=== PATIENT | male | born 1960 | race Caucasian/White ===

== ENCOUNTER 2018-05-18 18:45 | Inpatient (IN) | payer MEDICARE ==
[~2018-05-18] VITALS: Ht 170.2 cm; Wt 76.2 kg
--- NOTE | 2018-05-18 19:00 | NUR ---
WINSOME RN NOTES RECEIVED PATIENT ON ISRA[place], PT IS A/A/OX4. PATIENT IS PLACED ON WILL CALL ORDER CLERK WITH ST HR 108. PATIENT IS ON RA WITH SPO2 OF 98%, CO COMPLAINT OF CHEST PAIN, NO SOB AT THIS TIME, PATIENT IS BREATHING EVENLY, NON LABORED. IV LINE RIGHT AC IS PATIENT AND INTACT. SKIN ASSESSMENT IS DONE . ALL SAFETY MEASURES ARE IMPLEMENTED, BED IN LOWEST, LOCKED POSITION, CALL LIGHT IN REACH. PATIENT IS ORIENTED TO THE UNIT AND ASKED TO USE THE CALL LIGHT FOR ASSISTANCE AND HELP. WILL CONTINUE TO MONITOR PATIENT CLOSELY.
[2018-05-18 20:00] VITALS: BP 122/75
[2018-05-18] MEDS ORDERED: ALBUTEROL FS 2.5 MG/3 ML VIAL.NEB NEB PRN (23:00)
[2018-05-18] MEDS ORDERED: IPRATROPIUM NEB FS 0.5 MG/2.5 ML AMPUL.NEB NEB PRN (23:00)
[2018-05-18] MEDS ORDERED: AMIODARONE 900 MG in IV D5W 482 ML IV PRN (23:30)
[2018-05-18] MEDS ORDERED: AMIODARONE 150 MG in IV D5W 100 ML IV ONE (23:30)
[2018-05-18 23:40] LABS: BASOPHILS % (AUTO) 0.3 % (0.0-2.0); EOSINOPHILS % (AUTO) 0.3 % (0.0-6.0); HEMATOCRIT 38 % (39-51); HEMOGLOBIN 13.2 g/dL (13.5-17.5); LYMPHOCYTES # (AUTO) 2.2 /CMM (0.8-4.8); MEAN CORPUSCULAR HGB CONC 35 g/dl (31.0-36.0); MEAN CORPUSCULAR VOLUME 91 fL (80-96); MONOCYTES # (AUTO) 1.2 /CMM (0.1-1.30); MONOCYTES % (AUTO) 10.7 % (2.0-12.0); NEUTROPHILS # (AUTO) 7.9 /CMM (1.8-8.9); NEUTROPHILS % (AUTO) 69.7 % (43.0-81.0); PLATELET COUNT (AUTO) 245 /CMM (150-450); RED BLOOD CELL COUNT(AUTO) 4.21 MIL/uL (4.5-6.0); WHITE BLOOD COUNT (AUTO) 11.4 K/uL (4.3-11.0)
[2018-05-18 23:48] LABS: CALCIUM, SERUM 9.1 mg/dL (8.5-10.1); CARBON DIOXIDE 24 mmol/L (21-32); CHLORIDE 102 mmol/L (98-107); GLUCOSE 208 mg/dL (74-106); POTASSIUM 3.6 mmol/L (3.5-5.1); SODIUM SERUM 137 mmol/L (136-145); UREA NITROGEN, BLOOD 11 mg/dL (7-18)
[2018-05-18 23:53] LABS: CREATINE KINASE, TOTAL 74 U/L (39-308)
[2018-05-19] VITALS: BP 110/59
[2018-05-19 00:01] LABS: ALANINE AMINOTRANSFERASE 45 U/L (12-78); ALBUMIN 2.6 g/dL (3.4-5.0); ALKALINE PHOSPHATASE 188 U/L (46-116); ASPARTATE AMINOTRANSFERASE 26 U/L (15-37); B-TYPE NATRIURETIC PEPTIDE 2638 PG/ML (0-125); BILIRUBIN,DIRECT 0.6 mg/dL (0.0-0.2); BILIRUBIN,TOTAL 1.6 mg/dL (0.2-1.0); MAGNESIUM 1.8 mg/dL (1.8-2.4); PHOSPHORUS 2.8 mg/dL (2.5-4.9); TOTAL PROTEIN, SERUM 7.1 g/dL (6.4-8.2)
[2018-05-19] MEDS ORDERED: DEXTROSE 50%-WATER 50 ML DISP.SYRIN IV PRN (00:30)
[2018-05-19] MEDS ORDERED: AMIODARONE 150 MG/3 ML VIAL IV ONE ×4 (00:45→00:59)
[2018-05-19] MEDS ORDERED: CEFTRIAXONE 1 G VIAL ONE (00:58)
[2018-05-19] MEDS: CEFTRIAXONE 1 G in IV D5W 50 ML IV SCH (01:10)
[2018-05-19 04:00] VITALS: BP_SYST 104; BP_SYST 108; BP_DIAS 72; BP_DIAS 87
[2018-05-19 06:50] LABS: BASOPHILS % (AUTO) 0.5 % (0.0-2.0); EOSINOPHILS % (AUTO) 1.3 % (0.0-6.0); HEMATOCRIT 38 % (39-51); HEMOGLOBIN 13.5 g/dL (13.5-17.5); LYMPHOCYTES # (AUTO) 1.5 /CMM (0.8-4.8); LYMPHOCYTES % (AUTO) 18.6 % (20.0-44.0); MEAN CORPUSCULAR HGB CONC 35 g/dl (31.0-36.0); MEAN CORPUSCULAR VOLUME 91 fL (80-96); MONOCYTES % (AUTO) 11.7 % (2.0-12.0); NEUTROPHILS # (AUTO) 5.6 /CMM (1.8-8.9); NEUTROPHILS % (AUTO) 67.9 % (43.0-81.0); PLATELET COUNT (AUTO) 230 /CMM (150-450); WHITE BLOOD COUNT (AUTO) 8.3 K/uL (4.3-11.0)
[2018-05-19 06:57] LABS: THYROID STIMULATING HORMONE 2.261 uIU/mL (0.358-3.74)
[2018-05-19 07:05] LABS: CALCIUM, SERUM 9.3 mg/dL (8.5-10.1); MAGNESIUM 2.1 mg/dL (1.8-2.4); PHOSPHORUS 2.4 mg/dL (2.5-4.9); POTASSIUM 3.7 mmol/L (3.5-5.1)
--- NOTE | 2018-05-19 07:05 | NUR ---
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 PATIENT IS ON RA WITH SPO2 OF 99%, NO COMPLAINT OF CHEST PAIN, NO SOB AT THIS TIME, PATIENT IS BREATHING EVENLY, NON LABORED. IV LINE LEFT AC AND RIGHT HAND G20 ARE PATIENT AND INTACT WITH AMIODARONE DRIP AT 33.33ML/HR AT THIS TIME . ALL SAFETY MEASURES ARE IMPLEMENTED, BED IN LOWEST, LOCKED POSITION, CALL LIGHT IN REACH. PATIENT IS ORIENTED TO THE UNIT AND ASKED TO USE THE CALL LIGHT FOR ASSISTANCE AND HELP. WILL ENDORSE PATIENT'S CARE TO AM SHIFT FOR MARKING MACHINE OPERATOR.
--- NOTE | 2018-05-19 07:55 | NUR ---
WINSOME RN NOTE RECEIVED,ON TELE MONITOR AFIB HR 70 , LT AC AND RT HAND HL INTACT , ON AMIODARONE DRIP O PATIENT IN BED ALERT, ORIENTED, VERBALLY RESPONSIVE , BED IN LOWEST AND LOCKED POSITION , PLAN OF CARE DISCUSSED WITH PATIENT, BED IN LOWEST AND LOCKED POSITION, NO SOB NOTED ,NO C\O CHEST PAIN AT THIS TIME WILL CONT TO MONITOR CLOSELY
[2018-05-19 08:00] VITALS: BP 107/68
[2018-05-19] MEDS: AZITHROMYCIN 250 MG TABLET PO SCH (08:06)
[2018-05-19] MEDS: INSULIN REGULAR, HUMAN 100 UNIT/ML 3 ML VIAL SQ PRN ×3 (08:08→22:48)
[2018-05-19 08:55] LABS: APPEARANCE,URINE CLEAR (CLEAR); BILIRUBIN,URINE NEGATIVE (NEGATIVE); BLOOD, URINE NEGATIVE Ery/uL (NEGATIVE); COLOR,URINE YELLOW (YELLOW); KETONES,URINE TRACE (NEGATIVE); LEUKOCYTE ESTERASE ,URINE NEGATIVE (NEGATIVE); NITRITE, URINE NEGATIVE (NEGATIVE); PH,URINE 6.5 (5.0-8.0); PROTEIN,URINE NEGATIVE (NEGATIVE); UGLUCOSE TRACE mg/dL (NEGATIVE)
[2018-05-19] MEDS: NICOTINE PATCH (14MG) 14 MG PATCH.TD24 TD SCH ×2 (09:00→12:51)
[2018-05-19] MEDS ORDERED: ASPI-1152 PO (09:34)
[2018-05-19] MEDS ORDERED: CARV12.52 PO (09:34)
[2018-05-19 09:55] LABS: BACTERIA,URINE Rare /HPF (None Seen); RBC,URINE NONE SEEN /HPF (0-2); SQUAMOUS EPITHELIAL CELL,UR None Seen /HPF (None Seen); WBC,URINE NONE SEEN /HPF (0-3)
--- NOTE | 2018-05-19 11:30 | NUR ---
WINSOME RN NOTE UP ON CHAIR ALL NEEDS ATTENDED .NOT IN ACUTE DISTRESS
[2018-05-19] MEDS: BLOOD SUGAR DIAGNOSTIC 1 EACH STRIP IN SCH ×4 (11:35→22:37)
[2018-05-19] MEDS: HEPARIN SODIUM, PORCINE 5000 UNITS/1 ML VIAL SQ SCH ×2 (11:38→22:37)
[2018-05-19] MEDS ORDERED: ALBUTEROL FS 2.5 MG/3 ML VIAL.NEB ONE (11:59)
[2018-05-19 12:00] VITALS: BP 130/64
--- NOTE | 2018-05-19 12:57 | NUR ---
WINSOME QUINN NOTE SAURABH JANSEN RN MENTAL HEALTH PROGRAM SPECIALIST AT BEDSIDE , PATIENT REFUSED NICOTINE PATCH Addendum: 05/19/18 at 1300 by ROBINSON ALMARAZ RN NICOTINE PATCH NOT ADMINISTERED
--- NOTE | 2018-05-19 13:00 | NUR ---
WINSOME RN NOTE 2 DECHO DONE ORDERED , NOT IN DISTRESS ,CONT ON AMIODARONE DRIP ORDERED
[2018-05-19] MEDS ORDERED: K PHOS NEUTRAL 250 MG TABLET PO ONE (13:30)
--- NOTE | 2018-05-19 13:49 | NUR ---
Social service consult requested by case management. SW attempted to meet with patient twice, pt is currently being assessed by medical staff. Social work will attempt again.
--- NOTE | 2018-05-19 14:24 | NUR ---
WINSOME RN NOTE AUTOMOTIVE SERVICE ASSISTANT AT BEDSIDE ,PATIENT SIGNED HOMELESS WAIVER, WILL F\U
--- NOTE | 2018-05-19 15:55 | NUR ---
WINSOME RN NOTE DR BLANC AT BESIDE WITH ORDER TO STOP AMIODARONE DRIP, ORDER CARRIED OUT ,
[2018-05-19 16:00] VITALS: BP_SYST 128; BP_SYST 130; BP_DIAS 60; BP_DIAS 64
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
[2018-05-19] MEDS: BISOPROLOL FUMARATE 5 MG TABLET PO SCH (16:48)
--- NOTE | 2018-05-19 17:55 | NUR ---
WINSOME RN NOTE HAVING DINNER , ABLE TO SIT ON CHAIR ,NOT IN DISTRESS, ALL NEEDS ATTENDED, NO SOB, NO CHEST PAIN NOTED AT THIS TIME ,CALL LIGHT WITHIN REACH
[2018-05-19 20:00] VITALS: BP 128/85
--- NOTE | 2018-05-19 20:00 | NUR ---
WINSOME RN NOTE RECEIVED BEDSIDE REPORT FROM AM RN ,PATIENT IS ON TELE MONITOR AFIB HR 85 , LT AC IV LINE IS PATIENT AND INTACT , PATIENT IN BED ALERT, ORIENTED, VERBALLY RESPONSIVE , BED IN LOWEST AND LOCKED POSITION , PLAN OF CARE DISCUSSED WITH PATIENT,NO SOB NOTED ,NO C\O CHEST PAIN AT THIS TIME. WILL CONT TO MONITOR PATIENT CLOSELY.
[2018-05-20] VITALS (7 sets, daily range): BP systolic 100–130; BP diastolic 58–82
[2018-05-20] MEDS: CEFTRIAXONE 1 G in IV D5W 50 ML IV SCH (01:35)
[2018-05-20 07:16] LABS: BASOPHILS % (AUTO) 0.5 % (0.0-2.0); EOSINOPHILS % (AUTO) 2.3 % (0.0-6.0); HEMATOCRIT 44 % (39-51); HEMOGLOBIN 15.2 g/dL (13.5-17.5); LYMPHOCYTES # (AUTO) 1.9 /CMM (0.8-4.8); LYMPHOCYTES % (AUTO) 26.8 % (20.0-44.0); MEAN CORPUSCULAR HGB CONC 35 g/dl (31.0-36.0); MEAN CORPUSCULAR VOLUME 92 fL (80-96); MONOCYTES # (AUTO) 0.8 /CMM (0.1-1.30); MONOCYTES % (AUTO) 11.3 % (2.0-12.0); NEUTROPHILS # (AUTO) 4.1 /CMM (1.8-8.9); NEUTROPHILS % (AUTO) 59.1 % (43.0-81.0); PLATELET COUNT (AUTO) 333 /CMM (150-450); RED BLOOD CELL COUNT(AUTO) 4.76 MIL/uL (4.5-6.0); WHITE BLOOD COUNT (AUTO) 6.9 K/uL (4.3-11.0)
[2018-05-20 07:26] LABS: CREATININE 1.1 mg/dL (0.6-1.3); POTASSIUM 3.9 mmol/L (3.5-5.1)
[2018-05-20] MEDS: BLOOD SUGAR DIAGNOSTIC 1 EACH STRIP IN SCH ×4 (08:03→21:00)
[2018-05-20] MEDS: INSULIN REGULAR, HUMAN 100 UNIT/ML 3 ML VIAL SQ PRN ×3 (08:07→17:49)
[2018-05-20] MEDS: NICOTINE PATCH (14MG) 14 MG PATCH.TD24 TD SCH (09:00)
[2018-05-20] MEDS: BISOPROLOL FUMARATE 5 MG TABLET PO SCH ×2 (10:46→16:53)
[2018-05-20] MEDS: AZITHROMYCIN 250 MG TABLET PO SCH (10:46)
[2018-05-20] MEDS: HEPARIN SODIUM, PORCINE 5000 UNITS/1 ML VIAL SQ SCH ×2 (10:49→22:43)
--- NOTE | 2018-05-20 12:15 | NUR ---
RN NOTES RECEIVED REPORT FROM BILINGUAL LEGAL ASSISTANT RN @ 1215 FOR TRANSFER OF CARE. PT DENIES ANY SOB AND PAIN. PT IS SITTING IN BED. PT IS A&O X3 FORGETFUL AT TIMES. BED IS LOCKED AND IN LOWEST POSITION WITH CALL LIGHT WITHIN REACH. WILL CONTINUE TO MONITOR.
[2018-05-20] MEDS: LACTOBACILLUS RHAMNOSUS GG 1 EACH CAP.SPRINK PO SCH (16:52)
--- NOTE | 2018-05-20 19:51 | NUR ---
RN CLOSING NOTES GAVE REPORT TO SOLAR SALES MANAGER RN. PT RESTING IN BED. PT DENIES ANY PAIN OR SOB. WILL ENDORSE CONTINUITY OF CARE TO SOLAR SALES MANAGER NURSE.
[2018-05-21] MEDS: CEFTRIAXONE 1 G in IV D5W 50 ML IV SCH (00:01)
[2018-05-21] MEDS: INSULIN REGULAR, HUMAN 100 UNIT/ML 3 ML VIAL SQ PRN ×3 (00:35→13:20)
[2018-05-21 04:00] VITALS: BP 129/72
[2018-05-21] MEDS: BLOOD SUGAR DIAGNOSTIC 1 EACH STRIP IN SCH ×2 (07:30→12:00)
[2018-05-21 08:00] VITALS: BP 129/82
[2018-05-21] MEDS: LACTOBACILLUS RHAMNOSUS GG 1 EACH CAP.SPRINK PO SCH (09:36)
[2018-05-21] MEDS: NICOTINE PATCH (14MG) 14 MG PATCH.TD24 TD SCH ×2 (09:36→09:44)
[2018-05-21] MEDS: BISOPROLOL FUMARATE 5 MG TABLET PO SCH (09:38)
[2018-05-21] MEDS: AZITHROMYCIN 250 MG TABLET PO SCH (09:39)
[2018-05-21] MEDS: HEPARIN SODIUM, PORCINE 5000 UNITS/1 ML VIAL SQ SCH (09:42)
[2018-05-21] MEDS ORDERED: CEFT1VIA15 IV (11:52)
[2018-05-21] MEDS ORDERED: AZIT250T PO (11:52)
[2018-05-21] MEDS ORDERED: BISOPROLOL FUMARATE PO (11:54)
[2018-05-21 12:00] VITALS: BP 126/92
[2018-05-21] MEDS ORDERED: INSU100V7 SQ (12:05)
--- NOTE | 2018-05-21 12:42 | NUR ---
SW met with pt. bedside to discuss his discharge plan to [facility] located at [address] [place] [address], In [facility]. An updated Homeless patient Waiver form was signed by the pt. and placed in pt's chart. No other social service needs are requested at this time.
--- NOTE | 2018-05-21 16:16 | NUR ---
CASING MAN NOTE PATIENT BEING TRANSFERED TO [facility]. ALERT AND ORIENTED X3. UNSTEADY GATE, IV INTACT DUE TO CONTINUATION OF ATB THERAPY. VITALS STABLE WNL, TRANSPORT COMPANY WILL ASSIST IN SAFE ARRIVAL OF PATIENT. CALLED [facility] AT REHAB AND IS AWARE OF HIS TRANSFER. PATIENT INSTRUCTIONS AND INFORMATION GIVEN TO FACILITY AND PATIENT.
== END 2018-05-21 16:12 | DRG 194 ==
LOC: TELE1 18:45 → TELE-TD 05-19 00:54 → TELE1 05-20 10:06 → MEDSG1 05-20 10:09
PROVIDERS: ADMIT Registered Nurse; ATTEND Family Medicine
DX: J15.9 Unspecified bacterial pneumonia (principal); E44.0 Moderate protein-calorie malnutrition; G93.40 Encephalopathy, unspecified; I42.9 Cardiomyopathy, unspecified; E66.9 Obesity, unspecified; F17.210 Nicotine dependence, cigarettes, uncomplicated; G89.4 Chronic pain syndrome; I25.2 Old myocardial infarction; Z59.0 Homelessness; E11.65 Type 2 diabetes mellitus with hyperglycemia; E88.09 Other disorders of plasma-protein metabolism, not elsewhere classified; R74.0 Nonspecific elevation of levels of transaminase and lactic acid dehydrogenase [LDH]; Z68.26 Body mass index [BMI] 26.0-26.9, adult; D72.829 Elevated white blood cell count, unspecified; I48.2 Chronic atrial fibrillation; I10 Essential (primary) hypertension; I05.0 Rheumatic mitral stenosis; Z95.2 Presence of prosthetic heart valve; E80.6 Other disorders of bilirubin metabolism
CPT/HCPCS: 36415; 71045-TC; 80048-TC; 80053-TC; 80061-TC; 81000-TC; 82247-TC; 82248-TC; 82550-TC; 82962-TC; 83605-TC; 83735-TC; 83880; 84100-TC; 84443-TC; 84484-TC; 85025-TC; 85610-TC; 85730-TC; 87081-TC; 93307-TC; G0378; J0282; J0696; J1644; J1815; J7030; J7050; J7060